=== PATIENT | female | born 1995 | race Caucasian/White ===

== ENCOUNTER 2017-06-22 19:38 | Emergency (ER) | payer OTHER ==
[~2017-06-22] VITALS: Ht 152.4 cm; Wt 59.0 kg
[2017-06-22] MEDS ORDERED: PRENATAL TABLE1 EAC1 PO (19:49)
== END 2017-06-22 20:56 | disposition home or self-care (01) ==
LOC: ER 19:38
DX: S61.253A Open bite of left middle finger without damage to nail, initial encounter (principal); W55.01XA Bitten by cat, initial encounter; Z33.1 Pregnant state, incidental; Y93.89 Activity, other specified; Y92.488 Other paved roadways as the place of occurrence of the external cause; Y99.8 Other external cause status